=== PATIENT | male | born 1970 | race Native Hawaiian/Other Pacific Islander ===

== ENCOUNTER 2016-08-11 20:32 | Outpatient (CLI) | payer OTHER ==
[2016-08-11] MEDS ORDERED: CLON1TAB18 PO (21:05)
[2016-08-11] MEDS ORDERED: HYDR10TA47 PO (21:07)
== END 2016-08-11 20:35 | disposition short-term general hospital (02) ==
LOC: AMB 20:32
DX: R41.82 Altered mental status, unspecified (principal); S01.81XA Laceration without foreign body of other part of head, initial encounter; F10.129 Alcohol abuse with intoxication, unspecified; W18.39XA Other fall on same level, initial encounter; Y92.096 Garden or yard of other non-institutional residence as the place of occurrence of the external cause
CPT/HCPCS: A0425; A0427

== ENCOUNTER 2016-08-11 20:45 | Emergency (ER) | payer OTHER ==
[~2016-08-11] VITALS: Ht 188 cm; Wt 113.4 kg
[2016-08-11] MEDS ORDERED: CLON1TAB18 PO (21:05)
[2016-08-11] MEDS ORDERED: HYDR10TA47 PO (21:07)
[2016-08-11 23:30] VITALS: BP 120/80; TEMP 998
== END 2016-08-11 23:32 | disposition home or self-care (01) ==
LOC: ED 20:45
DX: S00.83XA Contusion of other part of head, initial encounter (principal); S00.31XA Abrasion of nose, initial encounter; F10.129 Alcohol abuse with intoxication, unspecified; S09.8XXA Other specified injuries of head, initial encounter; W18.39XA Other fall on same level, initial encounter; Y92.096 Garden or yard of other non-institutional residence as the place of occurrence of the external cause
CPT/HCPCS: 36415; 80320; 99283